=== PATIENT | male | born 1970 | race American Indian/Alaskan Native ===

== ENCOUNTER 2019-01-09 12:10 | Outpatient (CLI) | payer BC ==
--- NOTE | 2019-01-09 12:48 | XRay Report ---
Right index finger 3 views: History: Swelling. Findings: No bony or articular abnormality. No fracture periosteal reaction or lytic lesion. Impression: Essentially negative right index finger.
== END 2019-01-09 12:11 | disposition home or self-care (01) ==
LOC: XRAY 12:10
PROVIDERS: ATTEND Internal Medicine
DX: M79.89 Other specified soft tissue disorders (principal)